=== PATIENT | female | born 1950 ===

== ENCOUNTER 2017-12-09 11:38 | Emergency (ER) | payer MEDICARE ==
[2017-12-09 11:53] VITALS: BMI 22.2
[2017-12-09 12:02] VITALS: BP 114/72; PULSE 81; RESP 18; TEMP 98.3; O2SAT 100
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
== END 2017-12-09 12:34 | disposition home or self-care (01) ==
LOC: ED 11:38
DX: Z00.00 Encounter for general adult medical examination without abnormal findings (principal); L98.9 Disorder of the skin and subcutaneous tissue, unspecified; I10 Essential (primary) hypertension

== ENCOUNTER 2018-08-01 09:09 | Emergency (ER) | payer MEDICARE, OTHER ==
[2018-08-01 09:09] VITALS: BMI 22.2
[2018-08-01 09:34] VITALS: PULSE 80; TEMP 97.7
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
[2018-08-01 10:46] LABS: BASO # 0.07 K/mm3 (0.0-2.0); EOS # 0.1 (0.0-0.7); EOS % 3.6 % (1.5-5.0); GRAN # 1.46 (1.4-6.5); GRAN % 40.8 % (50.0-68.0); HEMOGLOBIN 12.1 g/dL (12.0-16.0); LYMPH # 1.6 (1.2-3.4); LYMPH % 45.5 % (22.0-35.0); MEAN CELL VOLUME 89.8 fl (80.0-105.0); MEAN CORPUSCULAR HGB CONC 33.4 g/dl (31.0-37.0); MEAN PLATELET VOLUME 9.2 fl (7.0-11.0); MONO # 0.3 (0.1-0.6); MONO % 8.1 % (1.0-6.0); RBC 4.03 10^6/uL (3.5-6.1); RED CELL DISTRIBUTION WIDTH 15.1 % (11.5-14.5); WHITE BLOOD COUNT 3.6 10^3/ul (4.5-11.0)
[2018-08-01 12:52] LABS: ALB/GLOB RATIO 1.4 (1.1-1.8); ALT/SGPT 27 U/L (7-56); AST/SGOT 29 U/L (14-36); BLOOD UREA NITROGEN 11 mg/dL (7-21); GFR NON-AFRICAN AMERICAN > 60
[2018-08-01 13:03] LABS: TROPONIN I < 0.01 ng/mL
--- NOTE | 2018-08-01 13:07 | RAD ---
Date of service: 08/01/2018 HISTORY: fall/ dizziness COMPARISON: 07/12/2018. FINDINGS: LUNGS: The lungs are well inflated and clear. PLEURA: No significant pleural effusion identified, no pneumothorax apparent. CARDIOVASCULAR: Normal. OSSEOUS STRUCTURES: No significant abnormalities. VISUALIZED UPPER ABDOMEN: Normal. OTHER FINDINGS: None. IMPRESSION: No active pulmonary disease.
--- NOTE | 2018-08-01 13:21 | RAD ---
Date of service: 08/01/2018 PROCEDURE: Left Wrist Radiographs. HISTORY: wrist pain COMPARISON: None. FINDINGS: BONES: There is diffuse bone demineralization. There is no acute displaced fracture or bone destruction. Bone alignment is normal. Status post open reduction and internal fixation of fracture in the distal radius. No evidence for hardware complications. JOINTS: Normal. No dislocation. SOFT TISSUES: Normal. OTHER FINDINGS: None. IMPRESSION: No acute displaced fracture or dislocation. Status post open reduction and internal fixation of fracture in the distal radius, no hardware complications.
--- NOTE | 2018-08-01 13:22 | RAD ---
PROCEDURE: Left Hand Radiographs. HISTORY: hand pain s/p fall COMPARISON: None. FINDINGS: BONES: There is diffuse bone demineralization. Bone alignment is normal. There is no acute displaced fracture or bone destruction. JOINTS: Normal. No osteoarthritic changes. SOFT TISSUES: Normal. OTHER FINDINGS: None. IMPRESSION: No acute fracture or dislocation.
--- NOTE | 2018-08-01 13:37 | CT ---
Date of service: 08/01/2018 PROCEDURE: CT HEAD WITHOUT CONTRAST. HISTORY: dizziness, fall 2 days ago COMPARISON: None available. TECHNIQUE: Axial computed tomography images were obtained through the head/brain without intravenous contrast. Radiation dose: Total exam DLP = 907.47 mGy-cm. This CT exam was performed using one or more of the following dose reduction techniques: Automated exposure control, adjustment of the mA and/or kV according to patient size, and/or use of iterative reconstruction technique. FINDINGS: HEMORRHAGE: No intracranial hemorrhage. BRAIN: There are mild chronic microangiopathic changes. There is no mass, mass effect or abnormal extra-axial fluid collection. There is no territorial infarction. The midline sagittal structures are normal. VENTRICLES: The ventricles are normal in size, shape and configuration. CALVARIUM: There is mild hyperostosis frontalis interna. There is an old fracture deformity in the left lamina papyracea. PARANASAL SINUSES: There is moderate polypoid mucosal thickening in the sphenoid sinus, the remaining included paranasal sinuses are predominantly clear. MASTOID AIR CELLS: Predominantly clear. OTHER FINDINGS: None. IMPRESSION: No acute intracranial abnormality. Mild chronic microangiopathic changes. Chronic sphenoid sinusitis.
[2018-08-01 14:26] VITALS: BP 127/72; RESP 18; O2SAT 99
--- NOTE | 2018-08-02 06:37 | CARD ---
APPROVED REPORT Date of service: 08/01/2018 EKG Measurement Heart [id number] <Conclusion> Normal sinus rhythm Normal ECG
== END 2018-08-01 14:00 | disposition left against medical advice (07) ==
LOC: ED 09:09
DX: R42 Dizziness and giddiness (principal); M25.532 Pain in left wrist

== ENCOUNTER 2018-12-04 11:52 | Outpatient (CLI) | payer MEDICARE, OTHER | END 2018-12-04 11:53 | disposition home or self-care (01) | LOC: RAD 11:52 | DX: S72.141E Displaced intertrochanteric fracture of right femur, subsequent encounter for open fracture type I or II with routine healing (principal) ==

== ENCOUNTER 2018-12-11 10:37 | Outpatient (CLI) | payer MEDICARE, OTHER | END 2018-12-11 10:38 | disposition home or self-care (01) | LOC: RAD 10:37 | DX: S72.141E Displaced intertrochanteric fracture of right femur, subsequent encounter for open fracture type I or II with routine healing (principal); M25.551 Pain in right hip ==

== ENCOUNTER 2019-01-01 14:37 | Outpatient (CLI) | payer MEDICARE, OTHER | END 2019-01-01 14:38 | disposition home or self-care (01) | LOC: RAD 14:38 ==

== ENCOUNTER 2019-01-17 12:47 | Outpatient (CLI) | payer MEDICARE, OTHER | END 2019-01-17 12:48 | disposition home or self-care (01) | LOC: LAB 12:47 ==

== ENCOUNTER 2019-02-06 08:55 | Outpatient (CLI) | payer MEDICARE, OTHER | END 2019-02-06 08:56 | disposition home or self-care (01) | LOC: RAD 08:55 ==